=== PATIENT | male | born 1975 ===

== ENCOUNTER 2019-09-11 07:46 | Emergency (ER) | payer SELFPAY ==
--- NOTE | 2019-09-11 08:37 | EDM.PDOC ---
ED HPI GENERAL MEDICAL PROBLEM - General Chief Complaint: CPR in Progress Stated Complaint: CODE BLUE Time Seen by Provider: 09/11/19 07:53 Source of Information: Reports: EMS History Limitations: Reports: Physical Impairment - History of Present Illness INITIAL COMMENTS - FREE TEXT/NARRATIVE: This is a apparent 44-year-old male brought in to the emergency room we are going on for 45 minutes prior to presentation. Patient was apparently a witnessed arrest with no CPR by bystanders at a hotel. CPR was instituted patient had rhythms of V. tach systole. Patient was shocked approximately 10 times in amiodarone 150 and 300 were given prior to presentation. Also had numerous rounds of epinephrine. Multiple rounds of CPR and epinephrine form patient never regained a blood pressure or rhythm. An attempt of intubation was performed with patient apparently bit down on the blade and patient has been bagged the entire time. Patient arrived in the emergency room he appeared mottled with pupils that were fixed dilated. Patient was intubated size 8 ET tube via Glidascope . Good color change good breath sounds bilaterally. Onset: Today Duration: Hour(s): Severity: Severe ED ROS GENERAL - Review of Systems Review Of Systems: See Below Immunologic: Reports: Seasonal Allergy Free Text/Narrative/Comment: Unable to perform review of system. Patient has been CPR entire time. Patient never regained consciousness or had a rhythm except PEA ED EXAM, CPR - Physical Exam Exam: See Below Limited By: Unresponsive General Appearance: Obtunded Eye Exam: Right Eye: Other (Patient is fixed and dilated) Ears: Normal External Exam Nose: Normal Inspection Throat/Mouth: Normal Inspection, Normal Lips, Normal Teeth, Normal Oropharynx Head: Atraumatic, Normocephalic Cardiovascular: Normal Pulse, Normal Peripheral Pulses, Regular Rate, Rhythm (Male) Exam: Deferred Neurological: Unresponsive Skin Exam: Cyanosis ED CPR PROCEDURES - Endotracheal Intubation Time of Intubation: 07:50 ET Intubation Indication: Respiratory Failure, Cardiac Arrest Preparation: Suction, Balloon Tested, BVM Set Up, Difficult Airway Equip Pre-Oxygenation: 100% FiO2 Anesthesia Meds: Other (none) Placement: Orotracheal, Uncomplicated Placement Number of Attempts: 2 Confirmed By: CO2 Indicator, Bilateral Breath Sounds Tube Secured By: By RT Endotracheal Intubation Comment: Entubated size 8. Via glideodoscope./Initial attempts slid out. Intubated 15 seconds after good results able to see through the cords EKG INTERPRETATION Rhythm: Other (PEA) Course - Vital Signs Text/Narrative:: This 44-year-old gentleman was presented to the emergency room after a witnessed arrest by standard per paramedics. This is approximately 1 hour prior to presentation to the emergency room. Paramedics stated that patient had PEA V. tach and asystole rhythms. Patient never had a blood pressure. Patient was shocked approximately 10 times. Patient received amiodarone 150 and 300 mg. Patient had 1 attempt at intubation via paramedics and patient was bagged entire time he presented. Paramedics state approximately 45 minutes of CPR prior to presentation. Upon presentation patient was extremely cyanotic pupils were fixed and dilated with no respiratory effort or no blood pressure. Rhythm at the time was PEA asystole. 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 And also received Narcan prior to presentation. Patient was intubated with size 8 ET tube. CPR was instituted with epinephrine , and bicarb. Patient never obtained a blood pressure. Code was called at approximately 8. Attempted to call next of kin mother Bonnie Arias. Without success left message on voicemail. Attempted to talk call brother Prieto Harper. No success patient had a voicemail full discussed case with the hash slinger in the emergency room. - Orders/Labs/Meds Orders: Active Orders 24 hr Category Date Time Status ACETAMINOPHEN [CHEM] Stat Lab 09/11/19 08:24 Ordered BLOOD GAS VENOUS [BG] Stat Lab 09/11/19 08:24 Ordered CBC WITH AUTO DIFF [HEME] Stat Lab 09/11/19 08:24 Ordered COMPREHENSIVE METABOLIC PN,CMP [CHEM] Stat Lab 09/11/19 08:24 Ordered ETHANOL BLOOD MEDICAL [CHEM] Stat Lab 09/11/19 08:24 Ordered SALICYLATE [CHEM] Stat Lab 09/11/19 08:24 Ordered TROPONIN I [CHEM] Stat Lab 09/11/19 08:24 Ordered Departure - Departure Time of Disposition: 08:00 Disposition: 20 Preliminary Cause of *Q: Respiratory Failure Clinical Impression: Cardiac arrest - Discharge Information - My Orders Last 24 Hours: My Active Orders 09/11/19 08:24 ACETAMINOPHEN [CHEM] Stat BLOOD GAS VENOUS [BG] Stat CBC WITH AUTO DIFF [HEME] Stat COMPREHENSIVE METABOLIC PN,CMP [CHEM] Stat ETHANOL BLOOD MEDICAL [CHEM] Stat SALICYLATE [CHEM] Stat TROPONIN I [CHEM] Stat - Assessment/Plan Last 24 Hours: My Active Orders 09/11/19 08:24 ACETAMINOPHEN [CHEM] Stat BLOOD GAS VENOUS [BG] Stat CBC WITH AUTO DIFF [HEME] Stat COMPREHENSIVE METABOLIC PN,CMP [CHEM] Stat ETHANOL BLOOD MEDICAL [CHEM] Stat SALICYLATE [CHEM] Stat TROPONIN I [CHEM] Stat
[2019-09-11 08:48] LABS: BLOOD UREA NITROGEN,BUN 14 mg/dL (7.0-18.0); CARBON DIOXIDE,CO2 19.2 mmol/L (21.0-32.0); CHLORIDE,CL 101 mmol/L (98-107); GLUCOSE RANDOM 369 mg/dL (74-106); POTASSIUM,K 2.7 mmol/L (3.5-5.1); SODIUM,NA 143 mmol/L (136-148)
[2019-09-11 08:49] LABS: ACETAMINOPHEN <2.0 ug/mL
[2019-09-11] MEDS ORDERED: EPINEPHrine 1:10,000 1 MG/10 ML Syringe IVPUSH ONE ×4 (10:58→11:06)
[2019-09-11] MEDS ORDERED: Sodium Bicarbonate 8.4% 50 MEQ/50 ML Syringe IVPUSH ONE (11:08)
== END 2019-09-11 12:45 | disposition expired ==
LOC: MW.ED 07:46
DX: I46.9 Cardiac arrest, cause unspecified (principal)
CPT/HCPCS: 31500; 36415; 80053; 80307; 82803; 84484; 85025; 92950; 96374; 99285; J0171